=== PATIENT | male | born 1950 | race Caucasian/White ===

== ENCOUNTER 2020-04-11 06:20 | Day surgery (SDC) | payer BC, MEDICARE ==
[~2020-04-11] VITALS: Ht 188 cm; Wt 122.5 kg
[~2020-04-11 06:20] MED LIST: COUMADIN5 MG PO; LOVENOX120 MG SUB-Q; OTEZLA30 MG PO; PROAIR RESPICL90 MCG; WARFARIN SODIUM5 MG PO
--- NOTE | 2020-04-11 07:56 | NUR ---
04/11/20 0756 Saba Tejeda 0751-PATIENT ARRIVED TO PACU ON 4L NC PLACED ON 2L RR EVEN. NONAROUSABLE. AFIB. PATIENT LAYING LEFT LATERAL ABDOMEN ROUND AND SOFT. IVF INFUSING.
--- NOTE | 2020-04-11 11:35 | OR ---
[facility] [address], [place] [address] Signed DATE OF OPERATION: 04/11/2020 SURGEON: Chester Santos MD PREOPERATIVE DIAGNOSES: 1. Screening. 2. Anemia. POSTOPERATIVE DIAGNOSES: 1. Moderate left-sided diverticulosis. 2. Minimal to moderate internal hemorrhoids. 3. A 3 mm polyps x2 at 6 cm. 4. A 4 mm polyp at 50 cm. 5. A 10-12 mm polyp at 70 cm (2 tattoo/snare). 6. A 4 mm polyp at 90 cm. 7. A 12 mm polyp at 95 cm/mid right colon (tattoo/snare). PROCEDURE: Colonoscopy with snare polypectomy and hot biopsy. ESTIMATED BLOOD LOSS: None. INDICATIONS: Cindy is a 69-year-old obese gentleman, asked to see me for his initial screening colonoscopy. He has no lower GI complaints. There is no family history of colon cancer or polyps. He was found to be slightly anemic on his preoperative blood work with a hemoglobin of 12.9, but a normal mean cell volume at 89. Also, he has significant medical issues including his obesity and COPD and so forth. Consequently, we did ask that an anesthesia provider to help us with increased monitoring sedation with propofol. In the office, I gave Cindy a booklet on colonoscopy and we looked at that together along with the risks including, but not limited to gas bloating, crampy abdominal pain, bleeding, perforation requiring surgery, and missed diagnosis. He had expressed understanding and wished to proceed. DESCRIPTION OF PROCEDURE: Cindy was taken into our endoscopy suite and placed in the left lateral decubitus position. We had him off the Coumadin. He was given IV sedation with propofol per our nurse assembler installer structures. A digital rectal exam was performed and this was unremarkable. The adult colonoscope was introduced and advanced under direct visualization of camera Electronically Signed By: CHESTER SANTOS MD 04/11/20 1135 PATIENT NAME: CINDY LECHUGA OPERATIVE REPORT DATE OF : 50 REPORT #: [id number] PHYSICIAN: CHESTER SANTOS MD PCP: LISHA PERDUE PAC REPORT IS CONFIDENTIAL AND NOT TO BE RELEASED WITHOUT AUTHORIZATION [facility] [address], [place] [address] Signed without difficulty. We found that he has a fairly short colon. We were into the cecum just over 100 cm. We could easily see the appendiceal orifice and the ileocecal valve. His prep was quite good. The scope was slowly withdrawn. We removed the above mentioned polyps with the help of the hot biopsy forceps. We did use the snare at 95 cm as well as at 70 cm. We found at 95 cm put into his mid right colon. We also left a tattoo at 95 cm and 1 back at 70 cm, which is probably somewhere in the proximal left colon. Also, he has moderately significant diverticulosis at least to the left colon maybe even into the transverse colon. I did not see any diverticula in the right colon. Once done in the rectum, the scope had been retroflexed and he does have minimal to moderate internal hemorrhoid columns. After this, the gas was suctioned out and the colonoscope removed. Cindy tolerated the procedure quite well. RECOMMENDATIONS: I will see Cindy back in my office in 7 to 14 days to review his results. We are going to have him resume the Coumadin on postoperative day 5 and he should be therapeutic around postoperative day 7 or so. Nevertheless, he does remain at risk for bleeding. Chester Santos MD ALB/MODL /[id number] cc: MD Lisha Mcmahon PA Copies: CHESTER SANTOS MD ~ Electronically Signed By: CHESTER SANTOS MD 04/11/20 1135 PATIENT NAME: CINDY LECHUGA OPERATIVE REPORT DATE OF : 50 REPORT #: [id number] PHYSICIAN: CHESTER SANTOS MD PCP: LISHA PERDUE PAC REPORT IS CONFIDENTIAL AND NOT TO BE RELEASED WITHOUT AUTHORIZATION
--- NOTE | 2020-04-12 14:25 | PATH ---
[facility] [address] [facility] [place], [place] [address] Signed SPECIMEN(S): A COLON POLYP AT 6 CM SPECIMEN(S): B COLON POLYP AT 50 CM SPECIMEN(S): C COLON POLYP AT 70 CM SPECIMEN(S): D COLON POLYP AT 90 CM SPECIMEN(S): E COLON POLYP AT 95 CM SPECIMEN SOURCE: A. COLON POLYP AT 6 CM B. COLON POLYP AT 50 CM C. COLON POLYP AT 70 CM D. COLON POLYP AT 90 CM E. COLON POLYP AT 95 CM CLINICAL HISTORY: Screening, anemia. Postop: Internal hemorrhoids, diverticulitis, colorectal polyps. MICROSCOPIC DESCRIPTION: Histologic sections of all submitted blocks are examined by light microscopy. These findings, together with the gross examination, support the pathologic diagnosis. FINAL PATHOLOGIC DIAGNOSIS: A. Colon, polyp at 6 cm, polypectomy: - Fragments of hyperplastic polyp. - Negative for dysplasia or malignancy. B. Colon, polyp at 50 cm, polypectomy: - Tubular adenoma. - Negative for high-grade dysplasia or malignancy. C. Colon, polyp at 70 cm, polypectomy: - Fragment of tubular adenoma. - Negative for high-grade dysplasia or malignancy. D. Colon, polyp at 90 cm, polypectomy: - Fragments of tubular adenoma. - Negative for high-grade dysplasia or malignancy. E. Colon, mid ascending polyp at 95 cm, polypectomy: - Fragments of tubular adenoma. - Negative for high-grade dysplasia or malignancy. NAL:cml:[id number] GROSS DESCRIPTION: Five specimens are received in five containers, labeled "RK." PATIENT NAME: CINDY LECHUGA PATHOLOGY DATE OF : 50 REPORT #: [id number] PHYSICIAN: ALEX VEGAS PCP: LISHA PERDUE PAC REPORT IS CONFIDENTIAL AND NOT TO BE RELEASED WITHOUT AUTHORIZATION [facility] [address] [place], [place] [address] Signed A. The specimen, labeled "RK,1," and designated on the requisition "colon polypectomy, 6 cm," is received in formalin and consists of three perry soft tissue fragments that measure 0.2 to 0.3 cm in greatest dimension. The specimen is entirely submitted in cassette (A1). B. The specimen, labeled "RK, 2," and designated on the requisition "colon polypectomy, 50 cm," is received in formalin and consists of two perry soft tissue fragments that measure 0.4 and 0.5 cm in greatest dimension. The specimen is entirely submitted in cassette (B1). C. The specimen, labeled "RK, 3," and designated on the requisition "colon polypectomy, 70 cm," is received in formalin and consists of 10 perry soft tissue fragments that measure 0.1 up to 0.9 cm in greatest dimension. The specimen is entirely submitted in cassette (C1). D. The specimen, labeled "RK, 4," and designated on the requisition "colon polypectomy, 90 cm," is received in formalin and consists of two perry soft tissue fragments that measure 0.3 and 0.4 cm in greatest dimension. The specimen is entirely submitted in cassette (D1). E. The specimen, labeled "RK, 5," and designated on the requisition "mid ascending polypectomy, 95 cm," is received in formalin and consists of multiple perry soft polypoid tissue fragments that measure less than 0.1 up to 1.2 cm in greatest dimension. The resection margin of the largest piece is inked blue and the piece is bivalved to reveal pink-perry, homogenous, glistening tissue. The specimen is entirely submitted as follows: (A1) bivalved largest piece (A2) remaining tissue AI (under the direct supervision of a pathologist) The Gross Description was prepared using a voice recognition system. The report was reviewed for accuracy; however, sound-alike word errors, addition and/or deletions may occur. If there is any question about this report, please contact Client Services. PERFORMING LABORATORY: The technical component was performed by [employer], [address] [place] [id number] (Hotel Valet Attendant: Genoveva Franks MD; CLIA# [id number]). [facility], [address] [place] [id number] (CLIA# [id number]). Diagnostician: Suyapa Da Silva MD Pathologist PATIENT NAME: CINDY LECHUGA PATHOLOGY DATE OF : 50 REPORT #: [id number] PHYSICIAN: ALEX PATHOLOGY PCP: LISHA PERDUE PAC REPORT IS CONFIDENTIAL AND NOT TO BE RELEASED WITHOUT AUTHORIZATION [facility] [address], [place] [address] Signed Electronically Signed 04/12/2020 Copies: ~ PATIENT NAME: CINDY LECHUGA PATHOLOGY DATE OF : 50 REPORT #: [id number] PHYSICIAN: ALEX PATHOLOGY PCP: LISHA PERDUE PAC REPORT IS CONFIDENTIAL AND NOT TO BE RELEASED WITHOUT AUTHORIZATION
== END 2020-04-11 08:35 | disposition home or self-care (01) ==
LOC: DS 06:20 → OPS 06:20 → DS 06:45 → OPS 06:45
PROVIDERS: Colon & Rectal Surgery
PROC: 0DBF8ZZ Excision of Right Large Intestine, Via Natural or Artificial Opening Endoscopic (ICD-10-PCS; 2020-04-11)
PROC: 3E0H8GC Introduction of Other Therapeutic Substance into Lower GI, Via Natural or Artificial Opening Endoscopic (ICD-10-PCS; 2020-04-11)
PROC: 0DBE8ZZ Excision of Large Intestine, Via Natural or Artificial Opening Endoscopic (ICD-10-PCS; principal; 2020-04-11 06:45)
DX: Z12.11 Encounter for screening for malignant neoplasm of colon (principal); D12.2 Benign neoplasm of ascending colon; D12.6 Benign neoplasm of colon, unspecified; K64.8 Other hemorrhoids; K57.30 Diverticulosis of large intestine without perforation or abscess without bleeding; D64.9 Anemia, unspecified; I48.91 Unspecified atrial fibrillation; J44.9 Chronic obstructive pulmonary disease, unspecified; Z79.899 Other long term (current) drug therapy; Z79.01 Long term (current) use of anticoagulants; Z87.891 Personal history of nicotine dependence
CPT/HCPCS: J2704; J7121